=== PATIENT | male | born 1945 | race Two or more races ===

== ENCOUNTER 2017-01-03 06:37 | Day surgery (SDC) | payer MEDICARE, OTHER ==
[2017-01-03] MEDS ORDERED: VANCOMYCIN FOR CATARACT SURGERY MC ONE ×2 (07:00)
[2017-01-03] MEDS ORDERED: BALANCED SALT IRRIG SOLN COMB1 500 ML, VANCOMYCIN FOR BSS PLUS 10 MG, GENTAMICIN SULFAT... IO ONE ×4 (07:00)
[2017-01-03] MEDS ORDERED: FLURBIPROFEN 0.03% OPHT DROP 2.5 ML BOTTLE ONE (07:01)
[2017-01-03] MEDS ORDERED: CIPROFLOXACIN 0.3% OPHT DROP 2.5 ML BOTTLE ONE (07:01)
[2017-01-03] MEDS ORDERED: CYCLOPENTOLATE 1% OPHT DROP 2 ML BOTTLE ONE (07:02)
[2017-01-03] MEDS ORDERED: PHENYLEPHRINE 2.5% OPHT DROP 2 ML BOTTLE ONE (07:02)
[2017-01-03] MEDS ORDERED: TROPICAMIDE 1% OPHT DROP 3 ML BOTTLE ONE (07:02)
[2017-01-03] MEDS ORDERED: LIDOCAINE-MPF 2% 5 ML VIAL ONE (07:23)
[2017-01-03] MEDS ORDERED: TETRACAINE HCL 0.5% OPHT DROP 2 ML BOTTLE ONE (07:23)
[2017-01-03] MEDS ORDERED: LIDOCAINE HCL-MPF 1% 5 ML VIAL ONE (07:23)
[2017-01-03] MEDS ORDERED: TIMOLOL MALEATE 0.5% OPHT DROP 5 ML BOTTLE ONE (07:23)
[2017-01-03] MEDS ORDERED: NEO/POLYMYX B/DEXAME OPHT OINT 3.5 GM TUBE ONE (07:23)
[2017-01-03] MEDS ORDERED: HYALURONIDASE,OVINE 200 UNITS/ML VIAL ONE (07:24)
[2017-01-03] MEDS ORDERED: BUPIVACAINE PF 0.5% 30 ML VIAL ONE (07:24)
[2017-01-03] MEDS ORDERED: EPINEPHRINE 1 MG/1 ML AMP ONE (07:24)
[2017-01-03] MEDS ORDERED: BALANCED SALT IRRIG SOLN COMB2 15 ML IRRIG.SOLN ONE (07:24)
[2017-01-03] MEDS ORDERED: ACETYLCHOLINE CHLORIDE 1% OPHT 1 EA KIT ONE (07:24)
[2017-01-03] MEDS ORDERED: HYALURONATE SODIUM 8.5 MG/0.85 ML DISP.SYRIN ONE (07:25)
[2017-01-03] MEDS ORDERED: HYALURONATE SODIUM 12.8 MG/0.8 ML DISP.SYRIN ONE (07:25)
[2017-01-03] MEDS ORDERED: IV NORMAL SALINE 1000 ML BAG IV ONE (08:18)
[2017-01-03] MEDS ORDERED: hydrALAZINE HCL 20 MG/1 ML VIAL IV ONE (08:18)
[2017-01-03] MEDS ORDERED: FENTANYL CITRATE 100 MCG/2 ML AMPUL ONE (08:21)
[2017-01-03] MEDS ORDERED: ACETAMINOPHEN 325 MG TABLET ONE (10:15)
== END 2017-01-03 10:27 | disposition home or self-care (01) ==
LOC: DS 06:37
PROVIDERS: ATTEND Ophthalmology
DX: H26.8 Other specified cataract (principal); E11.22 Type 2 diabetes mellitus with diabetic chronic kidney disease; I12.9 Hypertensive chronic kidney disease with stage 1 through stage 4 chronic kidney disease, or unspecified chronic kidney disease; E11.319 Type 2 diabetes mellitus with unspecified diabetic retinopathy without macular edema; N18.3 Chronic kidney disease, stage 3 (moderate); I73.89 Other specified peripheral vascular diseases; D64.89 Other specified anemias
CPT/HCPCS: 71010; A4663; J0171; J0360; J1580; J3010; J3370; J3471; J3490; J7030; J7321; V2632

== ENCOUNTER 2017-02-28 07:33 | Day surgery (SDC) | payer OTHER ==
[~2017-02-28 07:33] MED LIST: BALANCED SALT IRRIG SOLN COMB1 500 ML, VANCOMYCIN FOR BSS PLUS 10 MG, GENTAMICIN SULFAT... IO ONE; VANCOMYCIN FOR CATARACT SURGERY MC ONE
[2017-02-28] MEDS ORDERED: FLURBIPROFEN 0.03% OPHT DROP 2.5 ML BOTTLE ONE (07:53)
[2017-02-28] MEDS ORDERED: CIPROFLOXACIN 0.3% OPHT DROP 2.5 ML BOTTLE ONE (07:53)
[2017-02-28] MEDS ORDERED: CYCLOPENTOLATE 1% OPHT DROP 2 ML BOTTLE ONE (07:54)
[2017-02-28] MEDS ORDERED: TROPICAMIDE 1% OPHT DROP 3 ML BOTTLE ONE (07:54)
[2017-02-28] MEDS ORDERED: PHENYLEPHRINE 2.5% OPHT DROP 2 ML BOTTLE ONE (07:54)
[2017-02-28] MEDS ORDERED: NEO/POLYMYX B/DEXAME OPHT OINT 3.5 GM TUBE ONE (08:33)
[2017-02-28] MEDS ORDERED: TETRACAINE HCL 0.5% OPHT DROP 2 ML BOTTLE ONE (08:33)
[2017-02-28] MEDS ORDERED: LIDOCAINE-MPF 2% 5 ML VIAL ONE (08:33)
[2017-02-28] MEDS ORDERED: LIDOCAINE HCL-MPF 1% 5 ML VIAL ONE (08:33)
[2017-02-28] MEDS ORDERED: TIMOLOL MALEATE 0.5% OPHT DROP 5 ML BOTTLE ONE (08:33)
[2017-02-28] MEDS ORDERED: HYALURONATE SODIUM 12.8 MG/0.8 ML DISP.SYRIN ONE (08:34)
[2017-02-28] MEDS ORDERED: BALANCED SALT IRRIG SOLN COMB2 15 ML IRRIG.SOLN ONE (08:34)
[2017-02-28] MEDS ORDERED: ACETYLCHOLINE CHLORIDE 1% OPHT 1 EA KIT ONE (08:34)
[2017-02-28] MEDS ORDERED: HYALURONIDASE,OVINE 200 UNITS/ML VIAL ONE (08:34)
[2017-02-28] MEDS ORDERED: BUPIVACAINE PF 0.5% 30 ML VIAL ONE (08:34)
[2017-02-28] MEDS ORDERED: HYALURONATE SODIUM 8.5 MG/0.85 ML DISP.SYRIN ONE (08:34)
[2017-02-28] MEDS ORDERED: EPINEPHRINE 1 MG/1 ML AMP ONE (08:34)
[2017-02-28] MEDS ORDERED: FENTANYL CITRATE 100 MCG/2 ML AMPUL ONE (09:18)
[2017-02-28] MEDS ORDERED: BALANCED SALT IRRIG SOLN COMB1 500 ML ONE (09:59)
== END 2017-02-28 11:45 | disposition home or self-care (01) ==
LOC: DS 07:33
PROVIDERS: ATTEND Ophthalmology
DX: H25.9 Unspecified age-related cataract (principal); E11.319 Type 2 diabetes mellitus with unspecified diabetic retinopathy without macular edema; I73.9 Peripheral vascular disease, unspecified; F03.90 Unspecified dementia, unspecified severity, without behavioral disturbance, psychotic disturbance, mood disturbance, and anxiety; D64.9 Anemia, unspecified; E11.22 Type 2 diabetes mellitus with diabetic chronic kidney disease; N18.3 Chronic kidney disease, stage 3 (moderate)
CPT/HCPCS: A4663; J0171; J1580; J3010; J3370; J3471; J3490; J7030; J7321; V2632